=== PATIENT | male | born 1940 | race Caucasian/White ===

== ENCOUNTER → 2018-04-22 | Outpatient (CLI) | payer MEDICARE | END | disposition home or self-care (01) | LOC: EDBD → PCVCCLINIC 13:57 | PROVIDERS: ATTEND Internal Medicine | DX: I25.10 Atherosclerotic heart disease of native coronary artery without angina pectoris (principal); R93.1 Abnormal findings on diagnostic imaging of heart and coronary circulation; I10 Essential (primary) hypertension; E78.5 Hyperlipidemia, unspecified; I65.23 Occlusion and stenosis of bilateral carotid arteries; R09.89 Other specified symptoms and signs involving the circulatory and respiratory systems; K21.9 Gastro-esophageal reflux disease without esophagitis; F17.210 Nicotine dependence, cigarettes, uncomplicated; Z79.82 Long term (current) use of aspirin | CPT/HCPCS: 80061; 85610; 93005; G0463 ==

== ENCOUNTER → 2018-04-23 | Outpatient (CLI) | payer MEDICARE ==
--- NOTE | 2018-04-23 10:08 | PCVCIMAG ---
APPROVED REPORT Indications Bruit Risk Factors Hypertension: CAD, Doppler Spectral Velocity Analysis PSV / EDVPSV / EDV ECA (R) 107 / 21 cm/sECA (L) 151 / 16 cm/s dICA (R) 87 / 21 cm/sdICA (L) 50 / 10 cm/s Mariela (R) 72 / 20 cm/smICA (L) 92 / 21 cm/s pICA (R) 70 / 16 cm/spICA (L) 101 / 21 cm/s Bulb (R) 58 / 5 cm/sBulb (L) 95 / 19 cm/s dCCA (R) 90 / 17 cm/sdCCA (L) 103 / 21 cm/s mCCA (R) 108 / 17 cm/smCCA (L) 120 / 21 cm/s Vert (R) 54 / 12 cm/sVert (L) 61 / 11 cm/s ICA/CCA 0.97ICA/CCA 0.98 Basic Measurements Blood Pressure: Pulses: Right Left RightLeft Brachial(Sitting) 138/42laEl957/84mmHgTemporal Real Time B-Mode Imaging Vert. (R)AntegradeVert. (L)Antegrade Findings The right carotid bulb has moderate heterogeneous plaque. The right proximal internal carotid artery shows <40% stenosis. The right common carotid artery shows no significant stenosis. The right external carotid artery shows no significant stenosis. The left carotid bulb has moderate plaque. The left proximal internal carotid artery shows <40% stenosis. The left common carotid artery shows no significant stenosis. The left external carotid artery shows no significant stenosis. Conclusion 1. Right internal carotid artery stenosis (<40%) 2. Left internal carotid artery stenosis (<40%) 3. Antegrade vertebral flow
--- NOTE | 2018-04-23 10:43 | PCVCIMAG ---
EXAM: AORTOILIAC DUPLEX INDICATION: Palpable abdominal fullness. FINDINGS: AORTA: Suprarenal aorta measures maximum diameter of 2.7 cm. There is not a fusiform infrarenal aortic aneurysm. The infrarenal aorta measures maximum diameter of 2.2 cm. No aortic stenosis. RIGHT COMMON ILIAC ARTERY: Maximum diameter is 1.5 cm. No significant stenosis. RIGHT EXTERNAL ILIAC ARTERY: No significant stenosis. LEFT COMMON ILIAC ARTERY: Maximum diameter is 1.5 cm. No significant stenosis. LEFT EXTERNAL ILIAC ARTERY: No significant stenosis. IMPRESSION: No abdominal aortic aneurysm. No aortoiliac stenosis seen. LOC:[id number]
--- NOTE | 2018-04-23 12:42 | PCVCIMAG ---
APPROVED REPORT Study performed: 04/23/2018 10:15:09 Exam: Stress Echocardiogram Indication: Abnormal Calcium score Patient Location: Echo lab Stress Nurse: Nhung Herrera RN Status: routine Ht: 5 ft 10 in HR: 83 bpm BP: 120/70 mmHg Rhythm: NSR Procedure The patient underwent an Exercise Stress Test using the Parker Protocol. Blood pressure, heart rate, and EKG were monitored. An Echocardiogram was performed by hvac service technician in four stages in quad fashion. At peak stress, four selected images were obtained and placed side by side with resting images for comparison. Stress Test Details Stress Test: Exercise stress testing was performed using a Parker protocol. HR Resting HR: 83 bpmMax Heart Rate (APMHR): 141 bpm Max HR Achieved: 155 bpmTarget HR (85% APMHR): 119 bpm % of APMHR: 109 Recovery HR: 90 bpm HR response to stress: Normal HR response to stress BP Resting BP: 120/70 mmHg Max BP: 188/84 mmHg Recovery BP: 160/80 mmHg BP response to stress: Normal blood pressure response to stress. ECG Resting ECG: Sinus Rhythm Stress ECG: Sinus Rhythm ST Change: Normal Maximum ST Deviation: 0 mm Arrhythmia: None Recovery ECG: Sinus Rhythm Recovery ST Change: Normal Recovery ST Deviation: 0 mm Recovery Arrhythmia: None Clinical Reason for Termination: Maximal effort Exercise duration: 9 min 08 sec Highest Stage Achieved: Stage 3: 3.4 mph at 14% grade. Exercise capacity: 10.50 METs Overall Exercise Capacity for Age: Good Angina Score: None Stress ECG Conclusion Clinical: Non-ischemic ECG: Non-ischemic Mederos Treadmill Score is 9.0 which is Low risk. Pre-Stress Echo The resting Echocardiogram showed normal left ventricular contractility with an estimated Ejection Fraction of about >55%. Normal wall motion in all segments on baseline images. Post-Stress Echo The stress Echocardiogram showed normal left ventricular contractility with an estimated Ejection Fraction of about 55-60%. Normal augmentation of wall motion in all segments on post stress images. Conclusion Clinical Response: Non-ischemic Exercise Capacity: Superior Stress ECG Response: Non-ischemic Stress Echo Images: Non-ischemic The left ventricle is normal in size and wall thickness in both the rest and stress images. Normal stress echocardiogram with maximal exercise stress. Other Information Study Quality: Adequate <Conclusion> The left ventricle is normal in size and wall thickness in both the rest and stress images. Normal stress echocardiogram with maximal exercise stress.
== END | disposition home or self-care (01) ==
LOC: PCVCIMAG 13:00
PROVIDERS: ATTEND Internal Medicine
DX: I65.23 Occlusion and stenosis of bilateral carotid arteries (principal); I25.10 Atherosclerotic heart disease of native coronary artery without angina pectoris; I10 Essential (primary) hypertension; R93.1 Abnormal findings on diagnostic imaging of heart and coronary circulation; R19.8 Other specified symptoms and signs involving the digestive system and abdomen
CPT/HCPCS: 93325; 93351; 93880; 93978